=== PATIENT | female | born 1965 | race Hispanic/Latino ===

== ENCOUNTER → 2022-03-31 | Outpatient (CLI) | payer OTHER ==
[2022-03-31 08:42] LABS: INR 1.01 (0.85-1.15)
[2022-03-31 08:43] LABS: PARTIAL THROMBOPLASTIN TIME 32.1 SEC (26.3-35.5)
== END | disposition home or self-care (01) ==
LOC: RAH 08:10
PROVIDERS: ATTEND Otolaryngology Plastic Surgery within the Head & Neck
DX: R59.1 Generalized enlarged lymph nodes (principal); Z79.01 Long term (current) use of anticoagulants
CPT/HCPCS: 38505; 85610; 85730; 36415; 76942; C1887